=== PATIENT | female | born 1980 | race Two or more races ===

== ENCOUNTER 2022-09-20 04:04 | Emergency (ER) | payer OTHER ==
[~2022-09-20] VITALS: Ht 165.1 cm; Wt 61.2 kg
[2022-09-20 04:11] VITALS: BP 125/88
[2022-09-20 05:36] LABS: BILIRUBIN,URINE NEGATIVE (NEGATIVE); COLOR,URINE YELLOW (YELLOW); LEUKOCYTE ESTERASE ,URINE 3+ (NEGATIVE); NITRITE, URINE NEGATIVE (NEGATIVE); PROTEIN,URINE TRACE mg/dl (NEGATIVE); UGLUCOSE NEGATIVE (NEGATIVE); UROBILINOGEN,URINE 0.2 EU/dL (0.2)
[2022-09-20 05:39] LABS: BACTERIA,URINE Moderate /HPF (None Seen); SQUAMOUS EPITHELIAL CELL,UR Many /HPF (None Seen)
[2022-09-20] MEDS ORDERED: KETO10TA2 PO (05:43)
[2022-09-20] MEDS ORDERED: CEPH500C2 PO (05:43)
== END 2022-09-20 05:49 ==
LOC: ER 04:07
DX: N12 Tubulo-interstitial nephritis, not specified as acute or chronic (principal)
CPT/HCPCS: 81001; 87086-TC